=== PATIENT | male | born 1940 | race Caucasian/White ===

== ENCOUNTER 2016-09-25 09:44 | Day surgery (SDC) ==
[2012-08-29 16:08] VITALS: BMI 23.9
[2016-09-25] MEDS ORDERED: LIDOCAINE 1% 20 ML MDV ID ONE (10:38)
[2016-09-25] MEDS ORDERED: DIPRIVAN 20 ML VIAL IVP ONE (12:29)
[2016-09-25] MEDS ORDERED: VERSED ONE (12:29)
[2016-09-25 14:02] VITALS: BP 132/67; TEMP 97.2
--- NOTE | 2016-09-26 13:27 | OP ---
INDICATIONS FOR PROCEDURE: 76-year-old gentleman presents for colonoscopy exam. He has a history of adenomatous polyps with the last colonoscopy five years ago. A grandparent had colon cancer at an elderly age. He presents now for colonoscopy. MEDICATIONS: SEE ANESTHESIA NOTES. PROCEDURE: COLONOSCOPY. REPORT: The risks, benefits, alternatives and limitations were discussed in detail with the patient. Informed consent was obtained. After adequate sedation was achieved, digital rectal exam revealed good tone, no masses. The colonoscope was introduced into the rectum and advanced under direct visual guidance to the cecum. The cecum was identified by the appendiceal orifice and IC valve. I then slowly withdrew the scope in a circumferential manner examining the mucosa quite carefully. I looked on the proximal and distal side of folds and flexures as best as possible. I was able to retroflex the scope in the right colon as well as left colon. I noted no abnormalities throughout the entire length of the colon except for internal hemorrhoids on retroflex view of the anal canal. The prep was good. The withdrawal time was 7 minutes and 17 seconds. The patient tolerated the procedure well with stable vital signs and pulse oximetry throughout. IMPRESSION: 1. SMALL INTERNAL HEMORRHOIDS. RECOMMENDATIONS: 1. High fiber diet. 2. Office visit as needed. 3. Reviewing his health and his advanced age, I would suggest a colonoscopy examination for surveillance again in 5 years, only if he is clinically well. We will not put him on our recall but please refer him for colonoscopy if he is a reasonable candidate at that time or sooner if needed. CC: DR. KATHLEEN TURCIOS
== END 2016-09-25 14:02 | disposition home or self-care (01) ==
LOC: SURG 09:44
PROVIDERS: ATTEND Internal Medicine Gastroenterology
DX: Z09 Encounter for follow-up examination after completed treatment for conditions other than malignant neoplasm (principal); Z86.010 Personal history of colon polyps; Z80.0 Family history of malignant neoplasm of digestive organs; K64.8 Other hemorrhoids

== ENCOUNTER 2016-10-26 10:26 | Outpatient (CLI) ==
[2012-08-29 16:08] VITALS: BMI 23.9
--- NOTE | 2016-10-26 11:18 | DI ---
EXAM: Radiographs, left hand HISTORY: Left hand pain and swelling. COMPARISON: None available. TECHNIQUE: Three views. FINDINGS: Bone mineralization is normal. There is no fracture or dislocation. Mild joint space na rrowing marginal osteophyte formation noted throughout the hand and wrist. No erosive changes are s een. No focal soft tissue abnormality is seen. IMPRESSION: Mild osteoarthritis.
--- NOTE | 2016-10-26 11:18 | DI ---
EXAM: Two views of the left wrist. History: Left wrist pain and swelling. Findings: There is a subtle lucency of the distal left radius. No dislocation. No abnormal calcifi cations or radiopaque foreign bodies. Mild to moderate narrowing of the first carpal metacarpal tank nt and mild to moderate narrowing of the scaphoid trapezium articulation. Impression: A subtle linear lucency within the distal left radius near the articular surface probabl y represents a nutrient foramen. Nondisplaced fracture is not excluded.
== END 2016-10-26 10:27 | disposition home or self-care (01) ==
LOC: RAD 10:26
PROVIDERS: ATTEND Internal Medicine
DX: M25.532 Pain in left wrist (principal); M25.432 Effusion, left wrist

== ENCOUNTER 2017-11-05 09:57 | Outpatient (POV) ==
[2012-08-29 16:08] VITALS: BMI 23.9
== END 2017-11-05 17:00 ==
LOC: OUTPT 09:57
PROVIDERS: ATTEND Otolaryngology
DX: H69.80 Other specified disorders of Eustachian tube, unspecified ear (principal)